=== PATIENT | female | born 1950 | race Caucasian/White ===

== ENCOUNTER 2018-12-10 13:13 | Inpatient (IN) | payer MEDICARE, BC ==
[~2018-12-10] VITALS: Ht 165.1 cm; Wt 103.1 kg
--- NOTE | 2018-12-10 13:45 | NUR ---
Admission Note with Justification for Admission to [facility] Patient admitted to [facility] for protective oversight for emergency stabilization of acute psychiatric crisis. Pt admitted from: Home vis [facility] Mode of arrival: EMS Accompanied By: EMS Precipitating behaviors that initiated intake and admission: Patient was reported to have called EMS on 12/04 and stating that she had a loaded gun and was afraid of what she might do. Patient was hallucinating and confused on admission at [place]. Description of failure of out patient attempts at stabilization in previous setting list behavior and medication trials: Several medication changes were made at [facility], prior to admission patient was in outpatient therapy. Behaviors and assessment findings upon admission: Patient was calm, withdrawn, depressed, neatly dressed, and cooperative. She was oriented to self, place, and time; when asked why she thought she was her, she stated 'To get help.' Patient denies SI at this time, and she states she's never had SI. She states she has had hallucinations in the past but denies having any recently. She states she has chronic back pain and normally takes naproxen for it, denies interventions at this time. Patient oriented to unit and moved to day room until meal time. Plan: Admit for protective oversight for adjustment and stabilization of medications, behaviors and mood. Intense treatment regimen including groups, medication adjustments, therapy, consistent regimen for ADL's, self care, and sleep hygiene. Daily monitoring by Inpatient staff, Psychiatry, and Medical Physician.
[2018-12-10] MEDS ORDERED: METHYL SALICYLATE/MENTHOL TOPICAL OINTMENT 57GM TUBE. TP PRN (14:00)
[2018-12-10] MEDS ORDERED: MAGNESIUM HYDROXIDE 2,400 MG/30 ML ORAL.SUSP. PO PRN (14:00)
[2018-12-10] MEDS ORDERED: MAG HYDROX/AL HYDROX/SIMETH 30 ML ORAL.SUSP PO PRN (14:00)
[2018-12-10 14:14] VITALS: BP 130/80
--- NOTE | 2018-12-10 15:35 | NUR ---
On 12/09/18, call placed to [facility] at [phone] to obtain benefits information. [facility] B services and claims can be submitted [place] [id number] or mailed to [address] [place] [address] [place] [facility]. Call reference number is [id number].
[2018-12-10] MEDS ORDERED: PENT100C PO (16:00)
[2018-12-10] MEDS ORDERED: PANT40TA5 PO (16:00)
[2018-12-10] MEDS ORDERED: CYAN-25 PO (16:00)
[2018-12-10] MEDS ORDERED: FLUO20CA8 PO (16:00)
[2018-12-10] MEDS ORDERED: MV-M1TAB8 PO (16:00)
[2018-12-10] MEDS ORDERED: SENN-37 PO (16:00)
[2018-12-10] MEDS ORDERED: LEVO50TA5 PO (16:00)
[2018-12-10] MEDS ORDERED: CARB1TAB2 PO (16:00)
[2018-12-10] MEDS ORDERED: CLOP75TA PO (16:00)
[2018-12-10] MEDS ORDERED: CHOL10003 PO (16:00)
[2018-12-10] MEDS ORDERED: ASPI1TAB54 PO (16:00)
[2018-12-10 16:24] VITALS: BP 142/85
[2018-12-10] MEDS: PENTOSAN POLYSULFATE SODIUM 100 MG CAPSULE. PO SCH (16:30)
[2018-12-10 17:07] LABS: BACTERIA,URINE MOD /HPF (0-FEW); BILIRUBIN,URINE NEG (NEG); CLARITY,URINE HAZY; COLOR,URINE YELLOW; GLUCOSE,URINE NEG (NEG); NITRITE,URINE NEG (NEG); RBC,URINE OCC /HPF (0-2); SQUAMOUS EPITHELIAL CELL,UR FEW /LPF; UROBILINOGEN,URINE 0.2 mg/dL (0.2 mg/dL)
--- NOTE | 2018-12-10 17:30 | NUR ---
PSYCHOSOCIAL ASSESSMENT ADMISSION DATE: 12/10/18 CONTACT INFORMATION: DPOA/Guardian Contact Name: Pt is a self sign Contact Address: [address]; [place] [address] Contact Phone #: ETHNIC ORIGIN: REASONS FOR ADMISSION: Combative Confusion/Disoriented Hallucinations Poor impulse control ADDITIONAL ADMISSION COMMENTS: According to the intake, pt is sleep deprived, intermittent hallucinations, SI called as she had a loaded gun and planned to shoot herself. Pt is combative towards hospital staff, agitated. REASON FOR ADMISSION IN PATIENT/FAMILY'S OWN WORDS: I think the medications I was given by my Urologist messed me up. It has Ketamine and I'm so foggy". PATIENT/FAMILY EXPECTATIONS FOR ADMISSION: Pt wants to get her medications evaluated and then go home. "I've been on them for 20 years and a change may be warranted. LIVING SITUATION: Patient lives with: Alone Contact Address: [address] [place] [address] [address]; [place] [address] Contact Phone #: FAMILY RELATIONS: Marital Status: # of Marriages: 2 # of Children: 2 [facility] Family Support: Concerned Additional Comments r/t Family: Pt reports that she was to Scott Verde and him 3 years later. Together the two had a son (Scott) who lived with CP until he passed at the age of 47. Pt then Juvenal العلي and was for 32 years. The two had a dtr, Alexandro who also lives in [place], [place] and is a great support for pt. Pt roughly 15 years ago due to complications from his diabetes. SIGNIFICANT PSYCHIATRIC/MEDICAL HISTORY: Psychiatric/Treatment History: Pt reports that she has been to [facility] in [place] and at one time, her dtr tried to have her move into [facility] after her CVA. "That was not a place for me". Pt has a prior dx of Parkinson's and MDD. Pt reports aside from her stroke, she also is a Breast Cancer survivor in remission and had a hysterectomy. Pertinent Family History: Pt sister had Breast and Ovarian Cancer, her brother, mother and father all had heart trouble. No mental health noted. HISTORICAL DATA: Childhood Environment: Stressful Childhood Environment Additional Comments: Pt reports that her father was not very supportive and her mother was pretty much a single parent. Pt father was a electric truck driver and home for 24 hours at a time. Pt is 1 of 5 children: Ignacia who lives in [place], Sinai lives in [place], [place]; Manpreet who also lives in [place], [place] and on brother who "years ago" (name not mentioned). Pt parents also almost 30 years ago at the young ages of 55 and 59. 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 "it helped them to find out if there was bad business or good business for the company. [employer] service: N My husbands were, but I was not Shinto background: Pt does not consider herself taoism but "if you have to put something down I guess you can say Samaritan". Sexual orientation: Heterosexual Educational Level: Pt graduated high school (12th grade) Past/Present Interests/Hobbies: Bowling ("although I wasn't very good at it"), Crocheting and Cooking (I cook a mean homemade mac and cheese). Financial support/resources: Group Home/Pension Social Security Monthly income: 2205 Person handling finances: Pt handles her own finances. Do you have a history of legal problems: N Cultural considerations: SOCIAL RELATIONSHIPS-CURRENT/PAST: Psychiatrist: Musa Kessler APRN PCP: Dr. Denise Wen Counselor/Therapist: [facility]: Support Group: Alterations Workroom Clerk/Corporate Fitness Program Coordinator: Other relationships: Neurologist: Dr. Almazan STRENGTHS & WEAKNESSES: Patient's strengths: Good family support Good verbal skills Ambulatory Approachable Other patient strengths: Patient's weaknesses: Impulsive Poor relationships Health problems Other Other patient weaknesses: Long hx of Depression PRELIMINARY PLAN OF TREATMENT: Preliminary plan: Dec. Anxiety/Panic Dec. Symp. Depression Promote Coping Skill Medication Stabilization Other preliminary treatment comments: DISCHARGE PLANNING: Discharge planning/disposition: Home Additional discharge needs identified: Pt wishes to return home to her apt. "There's no need for me to go anywhere besides home". ADDITIONAL INFORMATION: Other Pertinent Data: SW met with pt to complete PSA. In the beginnig of the assessment; Dr. Chiu attended and pt was able to tell both parties that she did not know if the gun was loaded. She reports not sleeping well lately just not feeling like herself. Pt reports before she knew it she had the gun and waving it in front of her face. Pt reports that she called 911 and also called her neighbor who came over to get the gun. She was then transferred to [facility]. Pt was alert and oriented x 4; however, couldn't guess more passed 93 when asked to do the serial 7's. "100-7, that's 93...94?! No that's not right. Oh I don't know". Pt reports that her , who has , initially had the gun in the house because he worked nights and wanted pt to have it for protection if possible. Pt was also able to report that she spends too much time alone. Pt does not have many friends and her 's family still helps out (caring for things around the house). Pt has home care through [facility] who cares for pt groceries, cleaning and can take her to appts on M,W,and F). Pt wants to be able to get off some of her meds and assess the doses of others. Pt is also concerned about her hands as she reports some "stiffness" and wants to see her neurologist MARIA DEL CARMEN. Pt mentioned some pain as she had a back surgery and reports part of her sleep issue has to do with the pain. Pt has been sleeping in her recliner, as laying flat is not comfortable and increases pain. Pt was very forthcoming with information and hopes to get things together. "I have so much on my mind and I obviously did not make a great decision". SW will continue to work with pt and work on getting pt more services in the home for support.
[2018-12-10] MEDS: CARBIDOPA/LEVODOPA 25/100MG TABLET PO SCH (20:51)
[2018-12-10] MEDS: SENNOSIDES/DOCUSATE 8.6/50MG TABLET. PO SCH (20:51)
--- NOTE | 2018-12-10 21:12 | PDOC ---
Exam Note: Oscar Note: Please also refer to the separate dictated note~for this date of service dictated separately. Discussed the patient with Nursing staff reviewed the chart.~Reviewed interim history and current functioning. Reviewed vital signs,~Labs/ Radiology~and current medications noted below. Continue current treatment with the changes noted in the dictated addendum note Assessment: Vital Signs/I&O: Vital Signs Date Time Temp Pulse Resp B/P (MAP) Pulse Ox O2 Delivery O2 Flow Rate FiO2 12/10/18 16:24 98.1 81 16 142/85 (104) 97 Room Air Labs: Laboratory Tests Test 12/10/18 14:25 12/10/18 16:48 Magnesium Level 1.6 mg/dL (1.8-2.4) L Urine Collection Type Unknown Urine Color Yellow Urine Clarity Hazy Urine pH 5.5 Urine Specific [place] 1.015 Urine Protein Neg (NEG-TRACE) Urine Glucose (UA) Neg mg/dL (NEG) Urine Ketones (Stick) Neg mg/dL (NEG) Urine Blood Neg (NEG) Urine Nitrite Neg (NEG) Urine Bilirubin Neg (NEG) Urine Urobilinogen Dipstick 0.2 mg/dL (0.2 mg/dL) Urine Leukocyte Esterase Trace (NEG) Urine RBC Occ /HPF (0-2) Urine WBC 1-4 /HPF (0-4) Urine Squamous Epithelial Cells Few /LPF Urine Bacteria Mod /HPF (0-FEW) Current Medications: Meds: Current Medications Medications (Trade) Dose Ordered Sig/Alyssia Route PRN Reason Start Time Stop Time Status Last Admin Dose Admin Carbidopa/Levodopa (Sinemet 25/100) 2 tab TID PO 12/10/18 21:00 12/10/18 20:51 Senna/Docusate Sodium (Senna Plus) 1 tab HS PO 12/10/18 21:00 12/10/18 20:51 I have reviewed the current psychotropics carefully including drug interactions. Risk benefit ratio favors no change other than as noted in my dictated progress note. Diagnosis: Problems: (1) Anxiety disorder (2) Major depressive disorder, recurrent episode (3) Impulse control disorder (4) Psychotic depression (5) Psychosis, atypical (6) Mild cognitive disorder SABRINA KAY MD Dec 10, 2018 21:12
--- NOTE | 2018-12-11 00:36 | NUR ---
Nursing note Pt alert and oriented, pleasant med compliant denies any circumstances re her admit. Says she has just had a lot going on but wont elaborate.
[2018-12-11 01:10] LABS: HEMOGLOBIN A1C 5.9 % (4.8-5.6)
[2018-12-11] MEDS: ACETAMINOPHEN 325 MG TABLET PO PRN (03:09)
[2018-12-11 03:11] LABS: THYROXINE 9.8 ug/dL (4.5-12.0)
[2018-12-11 06:29] VITALS: BP 139/82
[2018-12-11] MEDS: LEVOTHYROXINE 50 MCG TABLET PO SCH (06:47)
[2018-12-11] MEDS: PENTOSAN POLYSULFATE SODIUM 100 MG CAPSULE. PO SCH ×3 (07:30→16:30)
[2018-12-11] MEDS: PANTOPRAZOLE 40 MG TABLET. PO SCH (08:43)
[2018-12-11] MEDS: FLUoxetine HCL 20 MG CAPSULE PO SCH (08:43)
[2018-12-11] MEDS: CLOPIDOGREL BISULFATE 75 MG TABLET PO SCH (08:43)
[2018-12-11] MEDS: CARBIDOPA/LEVODOPA 25/100MG TABLET PO SCH ×3 (08:43→19:30)
[2018-12-11] MEDS: CYANOCOBALAMIN (VITAMIN B-12) 1,000 MCG TABLET. PO SCH (08:43)
[2018-12-11] MEDS: MULTIVITAMIN with MINERAL TABLET. PO SCH (08:43)
[2018-12-11] MEDS: CHOLECALCIFEROL (VITAMIN D3) 1,000 UNIT TABLET PO SCH (08:43)
[2018-12-11] MEDS: ASPIRIN 325 MG TABLET PO SCH (08:44)
--- NOTE | 2018-12-11 08:47 | HP ---
ADMIT DATE: 12/10/2018 PSYCHIATRIC ADMISSION HISTORY AND PSYCHIATRIC EVALUATION This late entry date of service 12/10/2018 covers elements not covered in my initial note 12/10/2018. IDENTIFYING DATA: The patient is a 68-year-old female referred to us from [facility] in [place] by Dr. Denise Wen after the patient was admitted there with worsening symptoms of depression, suicidal ideation with a loaded gun and plan to shoot herself at home where she lives by herself. She called the ambulance, was taken to the ER, was combative in the ER, agitated, having marked insomnia, intermittent hallucinations. Short-term memory deficits within the context of her right middle cerebral artery occlusion and CT head showing encephalomalacia around this area and generalized atrophy consistent with her age. This is all within the context of her Parkinson's for which she is on Sinemet in association with active hallucinations and worsening depression. She had failed outpatient psychiatric interventions with psychiatric nurse practitioner, Musa Kessler and a prior inpatient psychiatric stay at [facility]. She is deemed a potential danger to herself. Lives alone in her home and referred for inpatient psychiatric stabilization. CHIEF COMPLAINT: "I found myself with my hand gun in my hand waving it around in my head. I don't know if it was loaded or not. I felt more depressed and confused and called 911." HISTORY OF PRESENT ILLNESS: The patient has a history of worsening symptoms of depression with sleep and appetite changes, intermittent hallucinations. Short-term memory deficits and mood swings. No active homicidal ideation. She is fairly isolated, getting in-home services, but little contact socially beyond this. All of this has worsened her depression and presentation at admission. PAST PSYCHIATRIC HISTORY: As noted above and she was an inpatient at [facility] in [place] in the past. We will obtain those records. MEDICAL HISTORY: Positive for Parkinson's disease, right middle cerebral artery CVA, chronic interstitial cystitis, CA breast, DVT, chronic constipation, GERD, osteoarthritis, chronic back pain, hyperlipidemia, herpes, shortness of breath. CODE STATUS: DNR. ALLERGIES: MYRBETRIQ, CLINDAMYCIN, PREGABALIN, LIPITOR, ESTROGENS. ACCU-CHEKS: None. Ambulates ad nini with walker. CURRENT PSYCHOTROPICS: Prozac 20 mg a day. She is also on Sinemet 25/100 three times a day and in the past had been on amitriptyline, Ativan, meclizine, all of which were discontinued at [place]. FAMILY HISTORY: Noncontributory. SOCIAL HISTORY: No alcohol, drug abuse, physical, sexual or elder abuse history is noted. She is not known to be a perpetrator. REACTION TO HOSPITALIZATION: The patient accepting of it. ASSETS: Reasonably cognitively intact. She used to work in [employer]. She is . MENTAL STATUS EXAMINATION: The patient was seen individually evening of 12/10/2018. She was aware of the year 12/10/2018, knew the president was presromelia Graf. She was able to do one step on serial sevens and no more. Attention span short. Mood is depressed, anxious affect, mood congruent. She is a little apprehensive, but not clearly paranoid. No active suicidal or homicidal ideation. Attention span is short. Language function intact. Intellect average. Insight fair. Judgment intact to standard questioning at the time of my assessment. LABORATORY DATA: Reviewed. IMPRESSION: Major depressive disorder, recurrent with psychotic features, mild cognitive impairment, psychotic disorder, unspecified, rule out bipolar disorder, mixed with psychotic features. Rest diagnoses as above. PLAN: Admit to geropsychiatry unit at [facility]. I will see the patient daily individually from a psychiatric standpoint. Medical followup per Dr. Garcia. Continue the patient on her current medications. Obtain past psychiatric records from [facility], observe baseline, then make further changes as clinically indicated. Estimated length of stay 10-12 days. DISPOSITION: Plans possibly back home with intense outpatient treatment arranged prior to discharge, perhaps through [facility]. MAN Kaylah KAY MD DR: TONY/lor JOB#: [id number] / [id number]
--- NOTE | 2018-12-11 10:51 | NUR ---
Spoke with patient and pharmacy this morning. Pharmacy is not able to obtain Elmiron, patient asked daughter to bring in her home supply. Daughter told patient that she would bring it during visitation on Friday12/12/18. SW and pharmacy informed.
[2018-12-11 13:23] LABS: THYROID STIM HORMONE (TSH) 3.485 uIU/mL (0.358-3.740)
[2018-12-11 15:54] VITALS: BP 126/79
[2018-12-11] MEDS: SENNOSIDES/DOCUSATE 8.6/50MG TABLET. PO SCH (19:30)
--- NOTE | 2018-12-11 20:10 | CONS ---
DATE OF CONSULTATION: REASON FOR CONSULTATION: Medical management. HISTORY OF PRESENT ILLNESS: The patient is a 68-year-old female patient, who was referred to [facility] from [facility] in [place] where she was admitted with worsening symptoms of depression, suicidal ideation with a loaded gun and plan to shoot herself at home where she lives by herself. She apparently called the ambulance and was taken to the ER, was combative, agitated, having marked insomnia, intermittent hallucination as well as short term deficit within the context of right middle cerebral artery territory infarct and a CT scan showing encephalomalacia around that area, generalized atrophy consistent with her age. This is all within the context of her Parkinson's disease for which she is on Sinemet in association with active hallucination and worsening depression. She was admitted to this facility for inpatient psychiatric stabilization. PAST PSYCHIATRIC HISTORY: Significant worsening symptoms of depression and short-term memory deficit and mood swings. She has no homicidal ideation. PAST MEDICAL HISTORY: Significant for Parkinson's disease, right middle cerebral artery territory infarct, left-sided hemiparesis. She has breast cancer, DVT, chronic constipation, gastroesophageal reflux disease, osteoarthritis and osteoporosis, chronic back pain, hyperlipidemia, herpes zoster and shortness of breath. PAST SURGICAL HISTORY: Significant for total abdominal hysterectomy and bilateral salpingo-oophorectomy, tonsillectomy and back surgery. ALLERGIES: SHE IS ALLERGIC TO MYRBETRIQ, CLINDAMYCIN, PREGABALIN, LIPITOR AND ESTROGEN. MEDICATIONS: She is currently on following medications: She is on Plavix 75 mg once a day, aspirin/calcium carbonate 1 tablet once a day, fluoxetine 20 mg once a day, carbidopa/levodopa for Sinemet 25/100 two tablets 3 times a day, Senna-S one tablet at bedtime, Protonix 40 mg once a day, levothyroxine sodium 50 mcg once a day, cyanocobalamin 1000 mcg tablet 1 tablet once a day, ergocalciferol (vitamin D3) one tablet 1000 international unit once a day, multivitamin with mineral one tablet once a day and pentosan polysulfate sodium for Elmiron 100 mg 3 times a day for chronic cystitis. FAMILY HISTORY: Noncontributory. SOCIAL HISTORY: She is , lives alone. She has 1 son who was and has one daughter and one grandson. She does not smoke, drink alcohol or use any recreational drugs. PHYSICAL EXAMINATION: GENERAL: On examining her, she looked well and was clearly in no apparent respiratory distress, slightly pale, but no jaundice, cyanosis or thyromegaly. No jugular venous distention. No limb edema. VITAL SIGNS: Her heart rate was 81, blood pressure was 139/82, temperature was 97.9, respiratory rate was 16, and oxygen saturation was 99% on room air. HEAD, EYES, EARS, NOSE AND THROAT: Showed normocephalic, atraumatic. NECK: Supple. HEART: Showed normal first and second heart sounds. No gallop or murmur. CHEST: Clear to auscultation. No crepitation or rhonchi. ABDOMEN: Distended, soft, nontender. NEUROLOGIC: She is awake, alert, responding appropriately. All cranial nerves intact. EXTREMITIES: She moves extremities without difficulty. She ambulates with a walker. LABORATORY DATA: Showed her hemoglobin A1c was 5.9%. Magnesium was low at 1.6. Her total T4 and total T3 are normal at 9.8 and 108 respectively. Urinalysis was essentially unremarkable. She apparently has had lab work done at [facility] which showed that her white cell count was 4850. Her hemoglobin was 12.4, hematocrit 39, MCV 100, and platelet count 154,000. Her chemistry showed a serum sodium 143, potassium 4.1, chloride 108, BUN 18, creatinine 1.5. Glucose 106, bicarbonate 25. Ionized calcium 1.16. Her estimated GFR was 36 mL per minute. TSH was 3.060. Urinalysis was essentially unremarkable. ALLERGIES: SHE IS ALLERGIC TO ESTROGEN, ATORVASTATIN, CLINDAMYCIN, MYRBETRIQ, AND PREGABALIN. IMPRESSION: In summary, this is a 68-year-old female patient who was admitted to [facility] in [place] with worsening symptoms of depression, suicidal ideation with a loaded gun and plan to shoot herself at home where she lives by herself. She was very agitated and markedly insomnia, intermittent hallucination with short-term memory deficit in the context of her right middle cerebral artery territory infarct and CT scan showing encephalomalacia around this area and generalized atrophy consistent with her age. She was admitted to this facility for inpatient psychiatric stabilization. Medically, she has multiple medical problems including history of deep vein thrombosis of her right lower extremity. She has right middle cerebral artery territory infarct with left-sided hemiparesis, chronic interstitial cystitis without hematuria, chronic constipation. She has diaphragmatic hernia. She has also vertigo, gastroesophageal reflux disease, herpes viral infection and nicotine dependence, Parkinson's disease, hypercholesterolemia. She has also primary malignant neoplasm of her right breast. Her lab work is within normal range. Medically she seems all in all stable. Obviously, I will follow all the lab works that are still pending at the time of this dictation and make any necessary recommendation. Thank you, Dr. Chiu, for allowing me to participate in the care of this patient. LIANNA NOWAK MD DR: DEYSI/lor JOB#: [id number] / [id number]
--- NOTE | 2018-12-11 21:38 | PDOC ---
Exam Note: Oscar Note: Please also refer to the separate dictated note~for this date of service dictated separately.~Patient seen individually. Discussed the patient with Nursing staff reviewed the chart.~Reviewed interim history and current functioning. Reviewed vital signs,~Labs/ Radiology~and current medications noted below. Continue current treatment with the changes noted in the dictated addendum note Assessment: Vital Signs/I&O: Vital Signs Date Time Temp Pulse Resp B/P (MAP) Pulse Ox O2 Delivery O2 Flow Rate FiO2 12/11/18 15:54 97.9 83 18 126/79 (95) 99 12/11/18 06:29 Room Air I & O 12/10/18 12/10/18 12/11/18 15:00 23:00 07:00 Intake Total 120 ml 0 ml Balance 120 ml 0 ml Current Medications: Meds: Current Medications Medications (Trade) Dose Ordered Sig/Alyssia Route PRN Reason Start Time Stop Time Status Last Admin Dose Admin Vitamin D (Vitamin D3) 1,000 unit DAILY PO 12/11/18 09:00 12/11/18 08:43 Clopidogrel Bisulfate (Plavix) 75 mg DAILY PO 12/11/18 09:00 12/11/18 08:43 Cyanocobalamin (Vitamin B-12) 1,000 mcg DAILY PO 12/11/18 09:00 12/11/18 08:43 Fluoxetine HCl (PROzac) 20 mg DAILY PO 12/11/18 09:00 12/11/18 08:43 Levothyroxine Sodium (Synthroid) 50 mcg DAILY06 PO 12/11/18 06:00 12/11/18 06:47 Pantoprazole Sodium (Protonix) 40 mg DAILY PO 12/11/18 09:00 12/11/18 08:43 Aspirin (Camryn Aspirin) 325 mg DAILYWBKFT PO 12/11/18 08:00 12/11/18 08:44 Multivitamins/ Calcium (Thera-M Plus) 1 tab DAILY PO 12/11/18 09:00 12/11/18 08:43 I have reviewed the current psychotropics carefully including drug interactions. Risk benefit ratio favors no change other than as noted in my dictated progress note. Diagnosis: Problems: (1) Anxiety disorder (2) Major depressive disorder, recurrent episode (3) Impulse control disorder (4) Psychotic depression (5) Psychosis, atypical (6) Mild cognitive disorder ELIZA,MAN M MD Dec 11, 2018 21:38
--- NOTE | 2018-12-12 02:10 | NUR ---
Last evening pt was quiet and active on unit. When conversing with nurse she was pleasant and cooperative. She denies SI or hallucinations ans said she is feeling much better than when admitted. Meds taken whole without difficulty. No behaviors this shift.
[2018-12-12] MEDS: LEVOTHYROXINE 50 MCG TABLET PO SCH (06:00)
[2018-12-12 06:22] VITALS: BP 135/74
[2018-12-12] MEDS: ACETAMINOPHEN 325 MG TABLET PO PRN ×3 (06:51→20:18)
--- NOTE | 2018-12-12 06:53 | NUR ---
PRN tylenol given for back pain.
[2018-12-12] MEDS: ASPIRIN 325 MG TABLET PO SCH (09:45)
[2018-12-12] MEDS: CLOPIDOGREL BISULFATE 75 MG TABLET PO SCH (09:45)
[2018-12-12] MEDS: FLUoxetine HCL 20 MG CAPSULE PO SCH (09:46)
[2018-12-12] MEDS: CARBIDOPA/LEVODOPA 25/100MG TABLET PO SCH ×3 (09:46→19:34)
[2018-12-12] MEDS: CYANOCOBALAMIN (VITAMIN B-12) 1,000 MCG TABLET. PO SCH (09:46)
[2018-12-12] MEDS: MULTIVITAMIN with MINERAL TABLET. PO SCH (09:46)
[2018-12-12] MEDS: PANTOPRAZOLE 40 MG TABLET. PO SCH (09:46)
[2018-12-12] MEDS: CHOLECALCIFEROL (VITAMIN D3) 1,000 UNIT TABLET PO SCH (09:46)
[2018-12-12] MEDS: PENTOSAN POLYSULFATE SODIUM 100 MG CAPSULE. PO SCH ×3 (10:45→17:02)
--- NOTE | 2018-12-12 11:55 | NUR ---
Pt is calm, cooperative, compliant and oriented. No agitation, no aggression, no hallucinations, no delusions. She is compliant with her medication and assessment.
--- NOTE | 2018-12-12 12:00 | NUR ---
Pt has verbally contracted for safety while admitted here.
[2018-12-12 16:43] VITALS: BP 104/69
[2018-12-12] MEDS: SENNOSIDES/DOCUSATE 8.6/50MG TABLET. PO SCH (19:34)
--- NOTE | 2018-12-12 20:57 | NUR ---
Nursing note: Assumed care of pt in the day room. She was calm and watching a movie but stated she wasn't interested. She was compliant and pleasant. She denies SI and pain at this time but asked for Tylenol after she went to her room. States back pain is 8/10 and is chronic. Pt is A&OX4
--- NOTE | 2018-12-12 23:25 | PDOC ---
Exam Note: Oscar Note: Please also refer to the separate dictated note~for this date of service dictated separately.~Patient seen individually. Discussed the patient with Nursing staff reviewed the chart.~Reviewed interim history and current functioning. Reviewed vital signs,~Labs/ Radiology~and current medications noted below. Continue current treatment with the changes noted in the dictated addendum note Assessment: Vital Signs/I&O: Vital Signs Date Time Temp Pulse Resp B/P (MAP) Pulse Ox O2 Delivery O2 Flow Rate FiO2 12/12/18 16:43 98.2 87 20 104/69 (81) 98 12/12/18 06:22 Room Air I & O 12/11/18 12/11/18 12/12/18 14:59 22:59 06:59 Intake Total 720 ml 240 ml 240 ml Balance 720 ml 240 ml 240 ml Current Medications: I have reviewed the current psychotropics carefully including drug interactions. Risk benefit ratio favors no change other than as noted in my dictated progress note. Diagnosis: Problems: (1) Anxiety disorder (2) Major depressive disorder, recurrent episode (3) Impulse control disorder (4) Psychotic depression (5) Psychosis, atypical (6) Mild cognitive disorder SABRINA KAY MD Dec 12, 2018 23:25
[2018-12-13] MEDS: ACETAMINOPHEN 325 MG TABLET PO PRN ×3 (05:43→20:16)
[2018-12-13] MEDS: LEVOTHYROXINE 50 MCG TABLET PO SCH (05:43)
[2018-12-13 05:47] VITALS: BP 121/79
[2018-12-13] MEDS: PENTOSAN POLYSULFATE SODIUM 100 MG CAPSULE. PO SCH ×3 (09:15→15:46)
[2018-12-13] MEDS: CARBIDOPA/LEVODOPA 25/100MG TABLET PO SCH ×3 (09:16→20:16)
[2018-12-13] MEDS: FLUoxetine HCL 20 MG CAPSULE PO SCH (09:16)
[2018-12-13] MEDS: PANTOPRAZOLE 40 MG TABLET. PO SCH (09:16)
[2018-12-13] MEDS: ASPIRIN 325 MG TABLET PO SCH (09:16)
[2018-12-13] MEDS: CHOLECALCIFEROL (VITAMIN D3) 1,000 UNIT TABLET PO SCH (09:16)
[2018-12-13] MEDS: CYANOCOBALAMIN (VITAMIN B-12) 1,000 MCG TABLET. PO SCH (09:16)
[2018-12-13] MEDS: CLOPIDOGREL BISULFATE 75 MG TABLET PO SCH (09:16)
[2018-12-13] MEDS: MULTIVITAMIN with MINERAL TABLET. PO SCH (09:16)
--- NOTE | 2018-12-13 10:28 | NUR ---
Pt is calm, cooperative, compliant and oriented. No agitation, no aggression, no hallucinations, no delusions. Pt verbally contracted for safety while she is here. She is compliant with her medication and assessment.
[2018-12-13 16:20] VITALS: BP 120/70
[2018-12-13] MEDS: SENNOSIDES/DOCUSATE 8.6/50MG TABLET. PO SCH (20:16)
--- NOTE | 2018-12-13 21:53 | PDOC ---
Exam Note: Oscar Note: Please also refer to the separate dictated note~for this date of service dictated separately.~Patient seen individually. Discussed the patient with Nursing staff reviewed the chart.~Reviewed interim history and current functioning. Reviewed vital signs,~Labs/ Radiology~and current medications noted below. Continue current treatment with the changes noted in the dictated addendum note Assessment: Vital Signs/I&O: Vital Signs Date Time Temp Pulse Resp B/P (MAP) Pulse Ox O2 Delivery O2 Flow Rate FiO2 12/13/18 16:20 97.8 98 18 120/70 (87) 99 12/12/18 06:22 Room Air I & O 12/12/18 12/12/18 12/13/18 15:00 23:00 07:00 Intake Total 480 ml 240 ml Balance 480 ml 240 ml Current Medications: I have reviewed the current psychotropics carefully including drug interactions. Risk benefit ratio favors no change other than as noted in my dictated progress note. Diagnosis: Problems: (1) Anxiety disorder (2) Major depressive disorder, recurrent episode (3) Impulse control disorder (4) Psychotic depression (5) Psychosis, atypical (6) Mild cognitive disorder SABRINA KAY MD Dec 13, 2018 21:53
[2018-12-13] MEDS: traZODone 50 MG TABLET. PO SCH (23:00)
[2018-12-14 05:36] VITALS: BP 126/74
[2018-12-14] MEDS: LEVOTHYROXINE 50 MCG TABLET PO SCH (05:45)
[2018-12-14] MEDS: ACETAMINOPHEN 325 MG TABLET PO PRN ×3 (05:53→20:16)
--- NOTE | 2018-12-14 07:24 | PN ---
DATE: 12/11/2018 PSYCHIATRIC PROGRESS NOTE This late entry 12/11/2018 covers elements not covered in my initial note. SUBJECTIVE: I met with the patient evening of 12/11/2018. Per SHASHA Cormier, the patient slept 5-1/2 hours previous night. She has been withdrawn, somewhat depressed, comes out to the day room. We will get past psychiatric records from [facility]. REVIEW OF SYSTEMS: No CV, , pulmonary, eye system symptoms on review. MENTAL STATUS EXAM: Oriented to herself and situation. Speech has some latency, coherent. Abstraction fair, computation impaired, language function intact. Mood and affect remains depressed, anxious. LABORATORY DATA: Reviewed. IMPRESSION: Major depressive disorder, recurrent with psychotic features, mild cognitive impairment. Rest unchanged. PLAN: Change Prozac 20 mg a day to Cymbalta 30 mg a day. We will make further adjustments as clinically indicated. SABRINA KAY MD DR: TONY/lor JOB#: [id number] / [id number]
[2018-12-14] MEDS: CLOPIDOGREL BISULFATE 75 MG TABLET PO SCH (08:42)
[2018-12-14] MEDS: PENTOSAN POLYSULFATE SODIUM 100 MG CAPSULE. PO SCH ×3 (08:42→15:59)
[2018-12-14] MEDS: ASPIRIN 325 MG TABLET PO SCH (08:42)
[2018-12-14] MEDS: MULTIVITAMIN with MINERAL TABLET. PO SCH (08:43)
[2018-12-14] MEDS: CYANOCOBALAMIN (VITAMIN B-12) 1,000 MCG TABLET. PO SCH (08:43)
[2018-12-14] MEDS: PANTOPRAZOLE 40 MG TABLET. PO SCH (08:43)
[2018-12-14] MEDS: CHOLECALCIFEROL (VITAMIN D3) 1,000 UNIT TABLET PO SCH (08:43)
[2018-12-14] MEDS: CARBIDOPA/LEVODOPA 25/100MG TABLET PO SCH ×3 (08:43→20:14)
[2018-12-14] MEDS: FLUoxetine HCL 20 MG CAPSULE PO SCH (08:43)
--- NOTE | 2018-12-14 10:02 | NUR ---
Pt verbally contracted for safety while she is here. She is compliant with her medication and assessment. Pt is calm, cooperative, compliant and oriented. No agitation, no aggression, no hallucinations, no delusions.
--- NOTE | 2018-12-14 13:35 | NUR ---
ACTIVITY THERAPY ASSESSMENT Completed based on observation and interview. Pt. was sitting in the hallway and didn't show much interest in talking with SCREEN STRETCHER but did answer assessment questions. She explained she came from home, living alone with her dog, Salome. When asked about leisure interests/hobbies and what she does for fun, she explained "nothing." She watched TV, used to smiley, bake/cook, read newspaper. SCREEN STRETCHER discussed option about getting a journal while she was here and use of a electronic tablet with apps/games. She was surprised she could have access to a journal because she said she wanted to write a letter to a friend but wasn't able to get anything to write to him. SCREEN STRETCHER explained the structure a little more. Pt. soon added she just doesn't seem to trust people. Pt. appeared to smile more when talking about her small dog. She shared there are good neighbors who have dogs, too. Pt. talked about how after her stroke, she really couldn't smiley any longer. When asked what brought Pt. here, she paused, looks at SCREEN STRETCHER and questions her, asking "you know, don't you?" She went on to say she was a "stupid" old lady who did something stupid. Went on to say she never did anything like it before and when asked if she think's she will do it again, she said "probably not." Initial goal aimed to increase leisure engagement: Pt. will participate in at least one Activity Therapy group per day.
[2018-12-14 16:06] VITALS: BP 128/76
[2018-12-14] MEDS: traZODone 50 MG TABLET. PO SCH (20:14)
[2018-12-14] MEDS: SENNOSIDES/DOCUSATE 8.6/50MG TABLET. PO SCH (20:14)
[2018-12-14] MEDS: PATCH REMOVAL. MC SCH (21:00)
--- NOTE | 2018-12-14 21:16 | PDOC ---
Exam Note: Oscar Note: Please also refer to the separate dictated note~for this date of service dictated separately.~Patient seen individually. Discussed the patient with Nursing staff reviewed the chart.~Reviewed interim history and current functioning. Reviewed vital signs,~Labs/ Radiology~and current medications noted below. Continue current treatment with the changes noted in the dictated addendum note Assessment: Vital Signs/I&O: Vital Signs Date Time Temp Pulse Resp B/P (MAP) Pulse Ox O2 Delivery O2 Flow Rate FiO2 12/14/18 16:06 98.0 84 18 128/76 (93) 95 12/12/18 06:22 Room Air I & O 12/13/18 12/13/18 12/14/18 15:00 23:00 07:00 Intake Total 240 ml 240 ml 0 ml Balance 240 ml 240 ml 0 ml Current Medications: Meds: Current Medications Medications (Trade) Dose Ordered Sig/Alyssia Route PRN Reason Start Time Stop Time Status Last Admin Dose Admin Trazodone HCl (Desyrel) 50 mg QHS PO 12/13/18 23:00 12/14/18 20:14 I have reviewed the current psychotropics carefully including drug interactions. Risk benefit ratio favors no change other than as noted in my dictated progress note. Diagnosis: Problems: (1) Anxiety disorder (2) Major depressive disorder, recurrent episode (3) Impulse control disorder (4) Psychotic depression (5) Psychosis, atypical (6) Mild cognitive disorder SABRINA KAY MD Dec 14, 2018 21:16
--- NOTE | 2018-12-14 22:04 | PN ---
DATE: 12/13/2018 PSYCHIATRIC PROGRESS NOTE This late entry 12/13/2018 covers elements not covered in my initial note. SUBJECTIVE: I met with the patient in the evening. The patient slept 6-3/4 hours previous night. No suicidal ideation noted. She is somewhat withdrawn. REVIEW OF SYSTEMS: No CV, , pulmonary, eye, ENT system symptoms on review. MENTAL STATUS EXAM: Oriented to herself and situation. Speech has some latency, often responses monosyllabic. Abstraction fair, computation impaired, language function intact. Mood and affect still depressed, withdrawn, but improved. No suicidal ideation. LABORATORY DATA: Reviewed. IMPRESSION: Major depressive disorder with psychotic features; mild cognitive impairment. PLAN: Continue Cymbalta. Adjust gradually to 90 mg a day. Start trazodone 50 mg at bedtime scheduled, june repeat x 1 for insomnia. MAN Kaylah KAY MD DR: TONY/lor JOB#: [id number] / [id number]
--- NOTE | 2018-12-14 22:48 | NUR ---
Nursing Note Pt has a flat affect, is calm and cooperative with meds, main complaint is hip/back pain to the left side. Tylenol given PO, for pain. Sitting in day room quietly watching TV.
[2018-12-15] MEDS: LEVOTHYROXINE 50 MCG TABLET PO SCH (02:12)
[2018-12-15] MEDS: ACETAMINOPHEN 325 MG TABLET PO PRN ×3 (02:12→20:44)
[2018-12-15 02:18] VITALS: BP 137/83
--- NOTE | 2018-12-15 02:32 | NUR ---
Nursing Note Pt awake complaining of back pain, tylenol repeated, offered raegan toney but she declined, pt attempting to go back to sleep currently.
--- NOTE | 2018-12-15 05:01 | PN ---
DATE: 12/12/2018 PSYCHIATRIC PROGRESS NOTE This late entry 12/12/2018 covers the elements not covered in my initial note. SUBJECTIVE: I met with the patient in the evening. The patient slept 6 hours previous night. She has been compliant, appropriate, cooperative with the meds, does complain of low back pain, received Tylenol. A1c is 5.9. No suicidal ideation. REVIEW OF SYSTEMS: Positive for some tiredness. No CV, , pulmonary, eye, ENT system symptoms on review. MENTAL STATUS EXAM: Reasonably oriented. Speech is coherent, low in volume. Abstraction fair, computation impaired, language function intact, attention span short. Mood is somewhat depressed. Affect is mood congruent. LABORATORY DATA: Reviewed. IMPRESSION: Major depressive disorder with psychotic features; mild cognitive impairment. Rest unchanged. PLAN: Maintain Cymbalta at current dosage. We will gradually increase beyond the current 30 mg a day up to a maximum of 90 mg a day. Adjust further as clinically indicated. MAN Kaylah KAY MD DR: TONY/lor JOB#: [id number] / [id number]
[2018-12-15] MEDS: CARBIDOPA/LEVODOPA 25/100MG TABLET PO SCH ×3 (08:33→20:44)
[2018-12-15] MEDS: PENTOSAN POLYSULFATE SODIUM 100 MG CAPSULE. PO SCH ×3 (08:33→16:34)
[2018-12-15] MEDS: ASPIRIN 325 MG TABLET PO SCH (08:33)
[2018-12-15] MEDS: CLOPIDOGREL BISULFATE 75 MG TABLET PO SCH (08:33)
[2018-12-15] MEDS: CYANOCOBALAMIN (VITAMIN B-12) 1,000 MCG TABLET. PO SCH (08:33)
[2018-12-15] MEDS: MULTIVITAMIN with MINERAL TABLET. PO SCH (08:33)
[2018-12-15] MEDS: FLUoxetine HCL 20 MG CAPSULE PO SCH (08:33)
[2018-12-15] MEDS: CHOLECALCIFEROL (VITAMIN D3) 1,000 UNIT TABLET PO SCH (08:34)
[2018-12-15] MEDS: PANTOPRAZOLE 40 MG TABLET. PO SCH (08:34)
[2018-12-15] MEDS: LIDOCAINE (700MG/PATCH) PATCH. TD SCH (08:35)
--- NOTE | 2018-12-15 16:51 | NUR ---
Patient has been calm, cooperative, and compliant today. She has been out to the day room, social with peers, and participating in groups. Will continue to monitor and report to oncoming shift
[2018-12-15 17:16] VITALS: BP 129/81
[2018-12-15] MEDS: PATCH REMOVAL. MC SCH (20:44)
[2018-12-15] MEDS: traZODone 50 MG TABLET. PO SCH (20:44)
[2018-12-15] MEDS: SENNOSIDES/DOCUSATE 8.6/50MG TABLET. PO SCH (20:44)
--- NOTE | 2018-12-15 21:10 | PDOC ---
Exam Note: Oscar Note: Please also refer to the separate dictated note~for this date of service dictated separately.~Patient seen individually. Discussed the patient with Nursing staff reviewed the chart.~Reviewed interim history and current functioning. Reviewed vital signs,~Labs/ Radiology~and current medications noted below. Continue current treatment with the changes noted in the dictated addendum note Assessment: Vital Signs/I&O: Vital Signs Date Time Temp Pulse Resp B/P (MAP) Pulse Ox O2 Delivery O2 Flow Rate FiO2 12/15/18 17:16 97.7 88 16 129/81 (97) 98 12/12/18 06:22 Room Air I & O 12/14/18 12/14/18 12/15/18 15:00 23:00 07:00 Intake Total 600 ml 480 ml Balance 600 ml 480 ml Current Medications: Meds: Current Medications Medications (Trade) Dose Ordered Sig/Alyssia Route PRN Reason Start Time Stop Time Status Last Admin Dose Admin Lidocaine (Lidoderm) 1 patch DAILY TD 12/15/18 09:00 12/15/18 08:35 I have reviewed the current psychotropics carefully including drug interactions. Risk benefit ratio favors no change other than as noted in my dictated progress note. Diagnosis: Problems: (1) Anxiety disorder (2) Major depressive disorder, recurrent episode (3) Impulse control disorder (4) Psychotic depression (5) Psychosis, atypical (6) Mild cognitive disorder SABRINA KAY MD Dec 15, 2018 21:10
--- NOTE | 2018-12-15 22:23 | NUR ---
Nursing Note Tylenol given with HS meds for back pain, pleasant calm and cooperative this PM. States she had a good day.
--- NOTE | 2018-12-15 22:55 | PN ---
DATE: 12/14/2018 PSYCHIATRIC PROGRESS NOTE This late entry 12/14/2018 covers elements not covered in my initial note. SUBJECTIVE: I met with the patient evening of 12/14/2018. Per SHASHA Khalil, the patient slept 6-1/2 hours previous night. She did well at night and during the day, remains depressed, withdrawn. Denies active suicidal ideation or psychotic symptoms. REVIEW OF SYSTEMS: No CV, , pulmonary, eye, ENT system symptoms on review, does complain of some tremors consequent to Parkinson's. We will consult Dr. Easley to monitor her anti-Parkinson's medications. MENTAL STATUS EXAM: Reasonably oriented. Speech has some latency, coherent. Abstraction fair, computation impaired, language function intact, attention span short. Mood and affect remain somewhat withdrawn, anxious, paranoid. LABORATORY DATA: Reviewed. IMPRESSION: Unchanged from initial note. PLAN: No change from initial note. Continue Cymbalta along with trazodone later for insomnia. MAN Kaylah KAY MD DR: TONY/lor JOB#: [id number] / [id number]
[2018-12-16 04:46] VITALS: BP 123/76
[2018-12-16] MEDS: LEVOTHYROXINE 50 MCG TABLET PO SCH (07:41)
[2018-12-16] MEDS: LIDOCAINE (700MG/PATCH) PATCH. TD SCH (07:45)
[2018-12-16] MEDS: CLOPIDOGREL BISULFATE 75 MG TABLET PO SCH (07:45)
[2018-12-16] MEDS: MULTIVITAMIN with MINERAL TABLET. PO SCH (07:46)
[2018-12-16] MEDS: CARBIDOPA/LEVODOPA 25/100MG TABLET PO SCH ×3 (07:46→20:34)
[2018-12-16] MEDS: CHOLECALCIFEROL (VITAMIN D3) 1,000 UNIT TABLET PO SCH (07:46)
[2018-12-16] MEDS: ASPIRIN 325 MG TABLET PO SCH (07:46)
[2018-12-16] MEDS: PANTOPRAZOLE 40 MG TABLET. PO SCH (07:46)
[2018-12-16] MEDS: CYANOCOBALAMIN (VITAMIN B-12) 1,000 MCG TABLET. PO SCH (07:46)
[2018-12-16 07:47] LABS: BASO % 1 % (0-3); EOS # 0.1 x10^3/uL (0.0-0.7); EOS % 3 % (0-3); HEMATOCRIT 38.6 % (36.0-47.0); HEMOGLOBIN 12.7 g/dL (12.0-15.5); LYMPH # 1.2 x10^3/uL (1.0-4.8); LYMPH % 31 % (24-48); MEAN CORPUSCULAR HEMOGLOBIN 32 pg (25-35); MEAN CORPUSCULAR HGB CONC 33 g/dL (31-37); MEAN CORPUSCULAR VOLUME 98 fL (79-100); MONO # 0.6 x10^3/uL (0.0-1.1); MONO % 15 % (0-9); NEUT # 1.9 x10^3uL (1.8-7.7); NEUT % 50 % (31-73); PLATELET COUNT 150 x10^3/uL (140-400); RED BLOOD COUNT 3.94 x10^6/uL (3.50-5.40); RED CELL DISTRIBUTION WIDTH 15.6 % (11.5-14.5); WHITE BLOOD COUNT 3.8 x10^3/uL (4.0-11.0)
[2018-12-16] MEDS: ACETAMINOPHEN 325 MG TABLET PO PRN ×2 (07:47→20:34)
[2018-12-16] MEDS: PENTOSAN POLYSULFATE SODIUM 100 MG CAPSULE. PO SCH ×3 (07:49→16:30)
[2018-12-16] MEDS: DULoxetine HCL 30 MG CAPSULE.DR PO SCH (07:49)
[2018-12-16 07:52] LABS: ALBUMIN 3.4 g/dL (3.4-5.0); GFR 54.8; POTASSIUM 4.3 mmol/L (3.5-5.1); TOTAL BILIRUBIN 0.4 mg/dL (0.2-1.0); TOTAL PROTEIN 6.9 g/dL (6.4-8.2)
--- NOTE | 2018-12-16 11:25 | NUR ---
Patient has been compliant with medications and cooperative with assessments. Patient complained of back and hip pain. Patient PRN Tylenol given at breakfast.
[2018-12-16 15:58] VITALS: BP 116/76
[2018-12-16] MEDS: traZODone 50 MG TABLET. PO SCH (20:33)
[2018-12-16] MEDS: SENNOSIDES/DOCUSATE 8.6/50MG TABLET. PO SCH (20:34)
[2018-12-16] MEDS: PATCH REMOVAL. MC SCH (20:38)
--- NOTE | 2018-12-16 21:43 | PDOC ---
Exam Note: Oscar Note: Please also refer to the separate dictated note~for this date of service dictated separately.~Patient seen individually. Discussed the patient with Nursing staff reviewed the chart.~Reviewed interim history and current functioning. Reviewed vital signs,~Labs/ Radiology~and current medications noted below. Continue current treatment with the changes noted in the dictated addendum note Assessment: Vital Signs/I&O: Vital Signs Date Time Temp Pulse Resp B/P (MAP) Pulse Ox O2 Delivery O2 Flow Rate FiO2 12/16/18 15:58 98.3 95 18 116/76 (89) 100 12/12/18 06:22 Room Air I & O 12/15/18 12/15/18 12/16/18 15:00 23:00 07:00 Intake Total 680 ml 240 ml 120 ml Balance 680 ml 240 ml 120 ml Labs: Laboratory Tests Test 12/16/18 07:13 White Blood Count 3.8 x10^3/uL (4.0-11.0) L Red Blood Count 3.94 x10^6/uL (3.50-5.40) Hemoglobin 12.7 g/dL (12.0-15.5) Hematocrit 38.6 % (36.0-47.0) Mean Corpuscular Volume 98 fL (79-100) Mean Corpuscular Hemoglobin 32 pg (25-35) Mean Corpuscular Hemoglobin Concent 33 g/dL (31-37) Red Cell Distribution Width 15.6 % (11.5-14.5) H Platelet Count 150 x10^3/uL (140-400) Neutrophils (%) (Auto) 50 % (31-73) Lymphocytes (%) (Auto) 31 % (24-48) Monocytes (%) (Auto) 15 % (0-9) H Eosinophils (%) (Auto) 3 % (0-3) Basophils (%) (Auto) 1 % (0-3) Neutrophils # (Auto) 1.9 x10^3uL (1.8-7.7) Lymphocytes # (Auto) 1.2 x10^3/uL (1.0-4.8) Monocytes # (Auto) 0.6 x10^3/uL (0.0-1.1) Eosinophils # (Auto) 0.1 x10^3/uL (0.0-0.7) Basophils # (Auto) 0.0 x10^3/uL (0.0-0.2) Sodium Level 143 mmol/L (136-145) Potassium Level 4.3 mmol/L (3.5-5.1) Chloride Level 108 mmol/L (98-107) H Carbon Dioxide Level 25 mmol/L (21-32) Anion Gap 10 (6-14) Blood Urea Nitrogen 13 mg/dL (7-20) Creatinine 1.0 mg/dL (0.6-1.0) Estimated GFR (Cockcroft-Gault) 54.8 BUN/Creatinine Ratio 13 (6-20) Glucose Level 103 mg/dL (70-99) H Calcium Level 9.0 mg/dL (8.5-10.1) Total Bilirubin 0.4 mg/dL (0.2-1.0) Aspartate Amino Transferase (AST) 21 U/L (15-37) Alanine Aminotransferase (ALT) 9 U/L (14-59) L Alkaline Phosphatase 51 U/L (46-116) Total Protein 6.9 g/dL (6.4-8.2) Albumin 3.4 g/dL (3.4-5.0) Albumin/Globulin Ratio 1.0 (1.0-1.7) Current Medications: Meds: Current Medications Medications (Trade) Dose Ordered Sig/Alyssia Route PRN Reason Start Time Stop Time Status Last Admin Dose Admin Duloxetine HCl (Cymbalta) 30 mg DAILY PO 12/16/18 09:00 12/17/18 23:50 12/16/18 07:49 I have reviewed the current psychotropics carefully including drug interactions. Risk benefit ratio favors no change other than as noted in my dictated progress note. Diagnosis: Problems: (1) Anxiety disorder (2) Major depressive disorder, recurrent episode (3) Impulse control disorder (4) Psychotic depression (5) Psychosis, atypical (6) Mild cognitive disorder SABRINA KAY MD Dec 16, 2018 21:43
--- NOTE | 2018-12-16 22:52 | NUR ---
Nursing Note Tylenol given with HS meds for back pain, pleasant calm and cooperative this PM.
[2018-12-17] MEDS: LEVOTHYROXINE 50 MCG TABLET PO SCH (04:49)
[2018-12-17 05:19] VITALS: BP 115/77
[2018-12-17] MEDS: CLOPIDOGREL BISULFATE 75 MG TABLET PO SCH (08:36)
[2018-12-17] MEDS: MULTIVITAMIN with MINERAL TABLET. PO SCH (08:36)
[2018-12-17] MEDS: ASPIRIN 325 MG TABLET PO SCH (08:36)
[2018-12-17] MEDS: DULoxetine HCL 30 MG CAPSULE.DR PO SCH (08:36)
[2018-12-17] MEDS: CARBIDOPA/LEVODOPA 25/100MG TABLET PO SCH ×3 (08:36→19:52)
[2018-12-17] MEDS: PANTOPRAZOLE 40 MG TABLET. PO SCH (08:37)
[2018-12-17] MEDS: CHOLECALCIFEROL (VITAMIN D3) 1,000 UNIT TABLET PO SCH (08:37)
[2018-12-17] MEDS: CYANOCOBALAMIN (VITAMIN B-12) 1,000 MCG TABLET. PO SCH (08:37)
[2018-12-17] MEDS: LIDOCAINE (700MG/PATCH) PATCH. TD SCH (08:39)
[2018-12-17] MEDS: PENTOSAN POLYSULFATE SODIUM 100 MG CAPSULE. PO SCH ×3 (08:40→17:03)
[2018-12-17] MEDS: ACETAMINOPHEN 325 MG TABLET PO PRN ×2 (08:42→19:52)
--- NOTE | 2018-12-17 08:58 | NUR ---
WEEKLY ACTIVITY THERAPY NOTE Date of Admission: 12/10/2018 Date of AT Assessment: 12/14/2018 Goal aimed: to increase leisure engagement Initial goal:Pt. will participate in at least one Activity Therapy group per day. Weekly progress towards goal: achieved when two groups were offered, 5 groups this week Group participation level: varied Weekly highlights: offering thoughts and ideas during group without prompting Behaviors observed: quiet, pleasant, minimal eye contact, will engage in groups, often around day room Plan: no change to goal Beneficial adaptations: reminders about group.
--- NOTE | 2018-12-17 10:36 | NUR ---
WEEKLY NOTE: Pt is eating roughly 75% of meals and sleeping on average 7 hours of sleep. Pt is not coming to groups as she is not fond of the music meditation. Pt is encouraged to attend the second half of SW groups. Pt is open to assisted living as she is mostly home alone and not interactive. Pt has flat affect and is very soft spoken. Pt may qualify for [facility] services to see if that will help pt continue to live at home. Pt Prozac is changed to Cymbalta and will have Trazodone for sleep. Pt did see Dr. Easley for neurology consult.
--- NOTE | 2018-12-17 14:04 | PN ---
DATE: 12/15/2018 PSYCHIATRIC PROGRESS NOTE This late entry 12/15/2018 covers elements not covered in my initial note. SUBJECTIVE: Per SHASHA Cormier, patient slept 4-3/4 hours previous night. She remains withdrawn, depressed, to minimize ____. Complains of some tremors from Parkinson's. Dr. Easley, Neurology has seen her. REVIEW OF SYSTEMS: No CV, , pulmonary, eye system symptoms on review. MENTAL STATUS EXAM: Reasonably oriented. Speech has some latency, coherent, low in volume, often responses monosyllabic. Abstraction fair, computation impaired, language function intact. Mood and affect withdrawn, depressed. LABORATORY DATA: Reviewed. IMPRESSION: Unchanged from initial note. PLAN: SHASHA Cormier indicated that inadvertently patient was never started on Cymbalta in place of Prozac on Friday. We will go ahead and initiate this transition from Prozac to Cymbalta 30 mg a day for 2 days, then 60 mg a day thereafter. Rest unchanged for now. SABRINA KAY MD DR: TONY/lor JOB#: [id number] / [id number]
[2018-12-17 15:42] VITALS: BP 119/82
--- NOTE | 2018-12-17 17:42 | NUR ---
Patient has been calm, cooperative, and compliant today. She has been out to the day room all shift, social with peers, and participating in groups. Patient requesting tylenol with her bedtime medications for back pain. Will continue to monitor and report to oncoming shift.
[2018-12-17] MEDS: traZODone 50 MG TABLET. PO SCH (19:52)
[2018-12-17] MEDS: SENNOSIDES/DOCUSATE 8.6/50MG TABLET. PO SCH (19:52)
[2018-12-17] MEDS: PATCH REMOVAL. MC SCH (19:53)
--- NOTE | 2018-12-17 21:40 | PDOC ---
Exam Note: Oscar Note: Please also refer to the separate dictated note~for this date of service dictated separately.~Patient seen individually. Discussed the patient with Nursing staff reviewed the chart.~Reviewed interim history and current functioning. Reviewed vital signs,~Labs/ Radiology~and current medications noted below. Continue current treatment with the changes noted in the dictated addendum note Assessment: Vital Signs/I&O: Vital Signs Date Time Temp Pulse Resp B/P (MAP) Pulse Ox O2 Delivery O2 Flow Rate FiO2 12/17/18 15:42 97.8 94 16 119/82 (94) 99 12/12/18 06:22 Room Air I & O 12/16/18 12/16/18 12/17/18 15:00 23:00 07:00 Intake Total 840 ml 240 ml 240 ml Balance 840 ml 240 ml 240 ml Current Medications: I have reviewed the current psychotropics carefully including drug interactions. Risk benefit ratio favors no change other than as noted in my dictated progress note. Diagnosis: Problems: (1) Anxiety disorder (2) Major depressive disorder, recurrent episode (3) Impulse control disorder (4) Psychotic depression (5) Psychosis, atypical (6) Mild cognitive disorder SABRINA KAY MD Dec 17, 2018 21:40
--- NOTE | 2018-12-18 00:34 | NUR ---
Patient was in the day room at time of medication administration and assessments. Patient was calm, compliant and cooperative. Not very verbal or expressive. No other notable behaviors at this time.
[2018-12-18 05:39] VITALS: BP 130/81
[2018-12-18] MEDS: LEVOTHYROXINE 50 MCG TABLET PO SCH (05:44)
[2018-12-18] MEDS: ASPIRIN 325 MG TABLET PO SCH (07:55)
[2018-12-18] MEDS: CLOPIDOGREL BISULFATE 75 MG TABLET PO SCH (07:56)
[2018-12-18] MEDS: CHOLECALCIFEROL (VITAMIN D3) 1,000 UNIT TABLET PO SCH (07:56)
[2018-12-18] MEDS: DULoxetine HCL 60 MG CAPSULE.DR PO SCH (07:56)
[2018-12-18] MEDS: MULTIVITAMIN with MINERAL TABLET. PO SCH (07:56)
[2018-12-18] MEDS: CYANOCOBALAMIN (VITAMIN B-12) 1,000 MCG TABLET. PO SCH (07:56)
[2018-12-18] MEDS: PANTOPRAZOLE 40 MG TABLET. PO SCH (07:56)
[2018-12-18] MEDS: PENTOSAN POLYSULFATE SODIUM 100 MG CAPSULE. PO SCH ×3 (07:56→16:25)
[2018-12-18] MEDS: CARBIDOPA/LEVODOPA 25/100MG TABLET PO SCH ×3 (07:56→20:39)
[2018-12-18] MEDS: LIDOCAINE (700MG/PATCH) PATCH. TD SCH (07:57)
[2018-12-18] MEDS: ACETAMINOPHEN 325 MG TABLET PO PRN ×2 (07:58→14:01)
[2018-12-18 16:08] VITALS: BP 123/80
--- NOTE | 2018-12-18 18:47 | NUR ---
Patient has been calm, cooperative, and compliant today. She has been out to the day room all shift, generally withdrawn to herself. SHe has had increased LBP, prn meds provided per eMAR. Patient requesting tylenol with her bedtime medications for back pain. Will continue to monitor and report to oncoming shift.
[2018-12-18] MEDS: traZODone 50 MG TABLET. PO SCH (20:39)
[2018-12-18] MEDS: SENNOSIDES/DOCUSATE 8.6/50MG TABLET. PO SCH (20:39)
[2018-12-18] MEDS: PATCH REMOVAL. MC SCH (20:39)
--- NOTE | 2018-12-18 21:34 | PDOC ---
Exam Note: Oscar Note: Please also refer to the separate dictated note~for this date of service dictated separately.~Patient seen individually. Discussed the patient with Nursing staff reviewed the chart.~Reviewed interim history and current functioning. Reviewed vital signs,~Labs/ Radiology~and current medications noted below. Continue current treatment with the changes noted in the dictated addendum note Assessment: Vital Signs/I&O: Vital Signs Date Time Temp Pulse Resp B/P (MAP) Pulse Ox O2 Delivery O2 Flow Rate FiO2 12/18/18 16:08 97.5 83 18 123/80 (94) 97 I & O 12/17/18 12/17/18 12/18/18 15:00 23:00 07:00 Intake Total 480 ml 360 ml 240 ml Balance 480 ml 360 ml 240 ml Current Medications: Meds: Current Medications Medications (Trade) Dose Ordered Sig/Alyssia Route PRN Reason Start Time Stop Time Status Last Admin Dose Admin Duloxetine HCl (Cymbalta) 60 mg DAILY PO 12/18/18 09:00 12/18/18 07:56 I have reviewed the current psychotropics carefully including drug interactions. Risk benefit ratio favors no change other than as noted in my dictated progress note. Diagnosis: Problems: (1) Anxiety disorder (2) Major depressive disorder, recurrent episode (3) Impulse control disorder (4) Psychotic depression (5) Psychosis, atypical (6) Mild cognitive disorder SABRINA KAY MD Dec 18, 2018 21:33
--- NOTE | 2018-12-19 00:43 | PN ---
DATE: 12/16/2018 PSYCHIATRIC PROGRESS NOTE This late entry 12/16/2018 covers the elements not covered in my initial note. SUBJECTIVE: I met with the patient in the evening. Per Kalani PULLIAM, the patient slept 7-1/2 hours previous night. She has complained of some vague pain, received Tylenol, somewhat withdrawn, still depressed. REVIEW OF SYSTEMS: No CV, , pulmonary, eye system symptoms on review. MENTAL STATUS EXAM: The patient is reasonably oriented. Speech is coherent, has some latency. Abstraction fair, computation impaired, language function intact, attention span short. Mood and affect withdrawn. LABORATORY DATA: Reviewed. IMPRESSION: Major depressive disorder with psychotic features; mild cognitive impairment; anxiety disorder, unspecified. PLAN: Continue psychotropics from initial note. Cymbalta has been increased to 60 mg a day. Continue trazodone. May consider augmentation with Wellbutrin or Abilify depending on her progress. SABRINA KAY MD DR: TONY/lor JOB#: [id number] / [id number]
--- NOTE | 2018-12-19 01:44 | NUR ---
Last evening pt was quiet and cooperative meds taken whole without difficulty. Denies SI, no behaviors.
--- NOTE | 2018-12-19 01:55 | PN ---
DATE: 12/17/2018 This late entry 12/17/2018 covers elements not covered in my initial note. SUBJECTIVE: I met with the patient evening of 12/17/2018. The patient slept 6 hours previous night. She was also staffed at a treatment team meeting morning of 12/17/2018, and she attended this herself and I met with her individually in the evening. Reviewed her history, progress. She is still depressed, withdrawn, has not been attending very many groups and said she was not aware of them and staff members went over this in detail with her at the treatment team meeting. REVIEW OF SYSTEMS: Ambulation impaired with walker. No CV, , pulmonary, eye system symptoms on review. MENTAL STATUS EXAM: Oriented reasonably. Speech moderate latency. Abstraction fair, computation impaired, language function intact. Mood is depressed, withdrawn. No active suicidal ideation. Affect is mood congruent. We discussed the gun she had at home that she was waving around her head loaded and she said the police have custody of the gun. We discussed possible assisted living placement or going back home with services from the [facility]. LABORATORY DATA: Reviewed. IMPRESSION: Major depressive disorder with psychotic features in partial remission, mild cognitive impairment, Parkinson's disease, anxiety disorder, unspecified. PLAN: Continue to gradually increase the Cymbalta to 60 mg a day. Use trazodone p.r.n. and scheduled and Sinemet being adjusted per Dr. Easley for Parkinson. SABRINA KAY MD DR: TONY/lor JOB#: [id number] / [id number]
[2018-12-19] MEDS: LEVOTHYROXINE 50 MCG TABLET PO SCH (05:31)
[2018-12-19 05:47] VITALS: BP 130/83
[2018-12-19] MEDS: LIDOCAINE (700MG/PATCH) PATCH. TD SCH (08:06)
[2018-12-19] MEDS: ASPIRIN 325 MG TABLET PO SCH (08:06)
[2018-12-19] MEDS: CHOLECALCIFEROL (VITAMIN D3) 1,000 UNIT TABLET PO SCH (08:06)
[2018-12-19] MEDS: CLOPIDOGREL BISULFATE 75 MG TABLET PO SCH (08:06)
[2018-12-19] MEDS: PANTOPRAZOLE 40 MG TABLET. PO SCH (08:06)
[2018-12-19] MEDS: DULoxetine HCL 60 MG CAPSULE.DR PO SCH (08:07)
[2018-12-19] MEDS: CYANOCOBALAMIN (VITAMIN B-12) 1,000 MCG TABLET. PO SCH (08:07)
[2018-12-19] MEDS: MULTIVITAMIN with MINERAL TABLET. PO SCH (08:07)
[2018-12-19] MEDS: PENTOSAN POLYSULFATE SODIUM 100 MG CAPSULE. PO SCH ×3 (08:07→16:22)
[2018-12-19] MEDS: CARBIDOPA/LEVODOPA 25/100MG TABLET PO SCH ×3 (08:07→20:21)
--- NOTE | 2018-12-19 14:23 | NUR ---
Patient has been calm, cooperative, and compliant today. She has been out to the day room most of the shift, generally withdrawn to herself. Will continue to monitor and report to oncoming shift.
[2018-12-19 15:45] VITALS: BP 118/82
[2018-12-19] MEDS: SENNOSIDES/DOCUSATE 8.6/50MG TABLET. PO SCH (20:21)
[2018-12-19] MEDS: PATCH REMOVAL. MC SCH (20:21)
[2018-12-19] MEDS: traZODone 50 MG TABLET. PO SCH (20:21)
[2018-12-19] MEDS: ACETAMINOPHEN 325 MG TABLET PO PRN (20:21)
--- NOTE | 2018-12-19 23:21 | PDOC ---
Exam Note: Oscar Note: Please also refer to the separate dictated note~for this date of service dictated separately.~Patient seen individually. Discussed the patient with Nursing staff reviewed the chart.~Reviewed interim history and current functioning. Reviewed vital signs,~Labs/ Radiology~and current medications noted below. Continue current treatment with the changes noted in the dictated addendum note Assessment: Vital Signs/I&O: Vital Signs Date Time Temp Pulse Resp B/P (MAP) Pulse Ox O2 Delivery O2 Flow Rate FiO2 12/19/18 15:45 97.7 80 18 118/82 (94) 99 I & O 12/18/18 12/18/18 12/19/18 15:00 23:00 07:00 Intake Total 600 ml 600 ml Balance 600 ml 600 ml Current Medications: I have reviewed the current psychotropics carefully including drug interactions. Risk benefit ratio favors no change other than as noted in my dictated progress note. Diagnosis: Problems: (1) Anxiety disorder (2) Major depressive disorder, recurrent episode (3) Impulse control disorder (4) Psychotic depression (5) Psychosis, atypical (6) Mild cognitive disorder SABRINA KAY MD Dec 19, 2018 23:21
--- NOTE | 2018-12-20 01:37 | NUR ---
Nsg Note: Patient in day room at time of medication administration and assessments. Patient calm, cooperative, and compliant with all cares. Patient went to bed shortly after taking medications. No other notable behaviors at this time.
[2018-12-20] MEDS: LEVOTHYROXINE 50 MCG TABLET PO SCH (05:48)
[2018-12-20 06:02] VITALS: BP 128/88
[2018-12-20] MEDS: PENTOSAN POLYSULFATE SODIUM 100 MG CAPSULE. PO SCH ×3 (08:14→17:04)
[2018-12-20] MEDS: CARBIDOPA/LEVODOPA 25/100MG TABLET PO SCH ×3 (08:15→20:19)
[2018-12-20] MEDS: PANTOPRAZOLE 40 MG TABLET. PO SCH (08:15)
[2018-12-20] MEDS: DULoxetine HCL 60 MG CAPSULE.DR PO SCH (08:15)
[2018-12-20] MEDS: MULTIVITAMIN with MINERAL TABLET. PO SCH (08:15)
[2018-12-20] MEDS: ASPIRIN 325 MG TABLET PO SCH (08:15)
[2018-12-20] MEDS: CLOPIDOGREL BISULFATE 75 MG TABLET PO SCH (08:15)
[2018-12-20] MEDS: CHOLECALCIFEROL (VITAMIN D3) 1,000 UNIT TABLET PO SCH (08:16)
[2018-12-20] MEDS: CYANOCOBALAMIN (VITAMIN B-12) 1,000 MCG TABLET. PO SCH (08:16)
[2018-12-20] MEDS: LIDOCAINE (700MG/PATCH) PATCH. TD SCH (09:05)
--- NOTE | 2018-12-20 10:53 | NUR ---
Pt verbally contracted for safety while she is here. Pt is calm, cooperative, compliant and oriented. No agitation, no aggression, no hallucinations, no delusions. She is compliant with her medication and assessment.
[2018-12-20 15:47] VITALS: BP 105/69
[2018-12-20] MEDS: SENNOSIDES/DOCUSATE 8.6/50MG TABLET. PO SCH (20:20)
[2018-12-20] MEDS: traZODone 50 MG TABLET. PO SCH (20:20)
[2018-12-20] MEDS: PATCH REMOVAL. MC SCH (20:34)
--- NOTE | 2018-12-20 20:38 | PDOC ---
Exam Note: Oscar Note: Please also refer to the separate dictated note~for this date of service dictated separately.~Patient seen individually. Discussed the patient with Nursing staff reviewed the chart.~Reviewed interim history and current functioning. Reviewed vital signs,~Labs/ Radiology~and current medications noted below. Continue current treatment with the changes noted in the dictated addendum note Assessment: Vital Signs/I&O: Vital Signs Date Time Temp Pulse Resp B/P (MAP) Pulse Ox O2 Delivery O2 Flow Rate FiO2 12/20/18 15:47 97.5 86 16 105/69 (81) 98 12/20/18 06:02 Room Air I & O 12/19/18 12/19/18 12/20/18 15:00 23:00 07:00 Intake Total 960 ml 240 ml 240 ml Balance 960 ml 240 ml 240 ml Current Medications: I have reviewed the current psychotropics carefully including drug interactions. Risk benefit ratio favors no change other than as noted in my dictated progress note. Diagnosis: Problems: (1) Anxiety disorder (2) Major depressive disorder, recurrent episode (3) Impulse control disorder (4) Psychotic depression (5) Psychosis, atypical (6) Mild cognitive disorder SABRINA KAY MD Dec 20, 2018 20:38
--- NOTE | 2018-12-20 23:26 | NUR ---
Pt located in the dayroom this evening. Pt calm and withdrawn to herself. Compliant with whole medications. Denies SI.
[2018-12-21 05:21] VITALS: BP 137/77
[2018-12-21] MEDS: LEVOTHYROXINE 50 MCG TABLET PO SCH (05:52)
[2018-12-21 07:24] LABS: BASO % 1 % (0-3); EOS # 0.1 x10^3/uL (0.0-0.7); EOS % 2 % (0-3); HEMATOCRIT 39.2 % (36.0-47.0); HEMOGLOBIN 12.6 g/dL (12.0-15.5); LYMPH # 1.4 x10^3/uL (1.0-4.8); LYMPH % 34 % (24-48); MEAN CORPUSCULAR HEMOGLOBIN 32 pg (25-35); MEAN CORPUSCULAR HGB CONC 32 g/dL (31-37); MEAN CORPUSCULAR VOLUME 98 fL (79-100); MONO # 0.5 x10^3/uL (0.0-1.1); MONO % 12 % (0-9); NEUT # 2.1 x10^3uL (1.8-7.7); NEUT % 52 % (31-73); PLATELET COUNT 187 x10^3/uL (140-400); RED BLOOD COUNT 3.98 x10^6/uL (3.50-5.40); RED CELL DISTRIBUTION WIDTH 15.3 % (11.5-14.5); WHITE BLOOD COUNT 4.1 x10^3/uL (4.0-11.0)
[2018-12-21] MEDS: PENTOSAN POLYSULFATE SODIUM 100 MG CAPSULE. PO SCH ×3 (07:30→16:28)
[2018-12-21 07:39] LABS: ALBUMIN 3.5 g/dL (3.4-5.0); ALBUMIN/GLOBULIN RATIO 0.9 (1.0-1.7); CALCIUM 8.7 mg/dL (8.5-10.1); CREATININE 1.1 mg/dL (0.6-1.0); GFR 49.1; POTASSIUM 4.4 mmol/L (3.5-5.1); TOTAL BILIRUBIN 0.3 mg/dL (0.2-1.0); TOTAL PROTEIN 7.4 g/dL (6.4-8.2)
[2018-12-21] MEDS: DULoxetine HCL 60 MG CAPSULE.DR PO SCH (08:24)
[2018-12-21] MEDS: CYANOCOBALAMIN (VITAMIN B-12) 1,000 MCG TABLET. PO SCH (08:24)
[2018-12-21] MEDS: CLOPIDOGREL BISULFATE 75 MG TABLET PO SCH (08:24)
[2018-12-21] MEDS: MULTIVITAMIN with MINERAL TABLET. PO SCH (08:24)
[2018-12-21] MEDS: PANTOPRAZOLE 40 MG TABLET. PO SCH (08:24)
[2018-12-21] MEDS: CHOLECALCIFEROL (VITAMIN D3) 1,000 UNIT TABLET PO SCH (08:24)
[2018-12-21] MEDS: ACETAMINOPHEN 325 MG TABLET PO PRN ×2 (08:24→20:04)
[2018-12-21] MEDS: ASPIRIN 325 MG TABLET PO SCH (08:24)
[2018-12-21] MEDS: CARBIDOPA/LEVODOPA 25/100MG TABLET PO SCH ×3 (08:24→20:02)
[2018-12-21] MEDS: LIDOCAINE (700MG/PATCH) PATCH. TD SCH (08:25)
--- NOTE | 2018-12-21 13:50 | NUR ---
HANS met with pt to discuss discharge planning and pt wishes to go home versus placement. Pt reports that she would prefer to discharge home. She knows that pt dtr does not wish for her to return home; but understands that it is pt decision. Pt does want to discharge home and is fine with extra services to help support her at home. SW informed pt that it would be ideal for her to get out of the house a couple times a week. SW recommended that pt continue to allow her neighbor to keep her gun and if she felt she needed something to make her feel safe, she can invest into pepper spray or some other means of protection. Pt reports that she believes she has an appointment schedule with both the neurologist and her Nurse Practitioner for meds. SW suggested pt getting home on but pt did request sooner. HANS agreed to Friday so that all appointments can be made and services reinstated. Pt agreed and reports that her dtr should be able to pick her up after work, as she is off around 1600. HANS will contact pt dtr to confirm this.
[2018-12-21 16:25] VITALS: BP 119/77
[2018-12-21] MEDS: traZODone 50 MG TABLET. PO SCH (20:02)
[2018-12-21] MEDS: SENNOSIDES/DOCUSATE 8.6/50MG TABLET. PO SCH (20:02)
[2018-12-21] MEDS: PATCH REMOVAL. MC SCH (20:34)
--- NOTE | 2018-12-21 20:37 | PDOC ---
Exam Note: Oscar Note: Please also refer to the separate dictated note~for this date of service dictated separately.~Patient seen individually. Discussed the patient with Nursing staff reviewed the chart.~Reviewed interim history and current functioning. Reviewed vital signs,~Labs/ Radiology~and current medications noted below. Continue current treatment with the changes noted in the dictated addendum note Assessment: Vital Signs/I&O: Vital Signs Date Time Temp Pulse Resp B/P (MAP) Pulse Ox O2 Delivery O2 Flow Rate FiO2 12/21/18 16:25 98.3 91 16 119/77 (91) 98 12/20/18 06:02 Room Air I & O 12/20/18 12/20/18 12/21/18 15:00 23:00 07:00 Intake Total 600 ml 600 ml Balance 600 ml 600 ml Labs: Laboratory Tests Test 12/21/18 07:04 White Blood Count 4.1 x10^3/uL (4.0-11.0) Red Blood Count 3.98 x10^6/uL (3.50-5.40) Hemoglobin 12.6 g/dL (12.0-15.5) Hematocrit 39.2 % (36.0-47.0) Mean Corpuscular Volume 98 fL (79-100) Mean Corpuscular Hemoglobin 32 pg (25-35) Mean Corpuscular Hemoglobin Concent 32 g/dL (31-37) Red Cell Distribution Width 15.3 % (11.5-14.5) H Platelet Count 187 x10^3/uL (140-400) Neutrophils (%) (Auto) 52 % (31-73) Lymphocytes (%) (Auto) 34 % (24-48) Monocytes (%) (Auto) 12 % (0-9) H Eosinophils (%) (Auto) 2 % (0-3) Basophils (%) (Auto) 1 % (0-3) Neutrophils # (Auto) 2.1 x10^3uL (1.8-7.7) Lymphocytes # (Auto) 1.4 x10^3/uL (1.0-4.8) Monocytes # (Auto) 0.5 x10^3/uL (0.0-1.1) Eosinophils # (Auto) 0.1 x10^3/uL (0.0-0.7) Basophils # (Auto) 0.0 x10^3/uL (0.0-0.2) Sodium Level 143 mmol/L (136-145) Potassium Level 4.4 mmol/L (3.5-5.1) Chloride Level 106 mmol/L (98-107) Carbon Dioxide Level 24 mmol/L (21-32) Anion Gap 13 (6-14) Blood Urea Nitrogen 21 mg/dL (7-20) H Creatinine 1.1 mg/dL (0.6-1.0) H Estimated GFR (Cockcroft-Gault) 49.1 BUN/Creatinine Ratio 19 (6-20) Glucose Level 110 mg/dL (70-99) H Calcium Level 8.7 mg/dL (8.5-10.1) Total Bilirubin 0.3 mg/dL (0.2-1.0) Aspartate Amino Transferase (AST) 19 U/L (15-37) Alanine Aminotransferase (ALT) 22 U/L (14-59) Alkaline Phosphatase 60 U/L (46-116) Total Protein 7.4 g/dL (6.4-8.2) Albumin 3.5 g/dL (3.4-5.0) Albumin/Globulin Ratio 0.9 (1.0-1.7) L Current Medications: I have reviewed the current psychotropics carefully including drug interactions. Risk benefit ratio favors no change other than as noted in my dictated progress note. Diagnosis: Problems: (1) Anxiety disorder (2) Major depressive disorder, recurrent episode (3) Impulse control disorder (4) Psychotic depression (5) Psychosis, atypical (6) Mild cognitive disorder SABRINA KAY MD Dec 21, 2018 20:37
--- NOTE | 2018-12-21 22:44 | PN ---
DATE: 12/18/2018 PSYCHIATRIC PROGRESS NOTE This late entry 12/18/2018 covers the elements not covered in my initial note. SUBJECTIVE: I met with the patient in the evening of 12/18/2018. Per SHASHA Cormier, the patient slept 6-3/4 hours previous night. She has been withdrawn, sits in the day room. No suicidal ideation. REVIEW OF SYSTEMS: Positive for some tiredness, ambulation with walker. No CV, , pulmonary, eye system symptoms on review. MENTAL STATUS EXAM: Reasonably oriented. Speech is coherent, has some latency. Abstraction fair, computation impaired, language function intact, attention span short. Mood and affect withdrawn. LABORATORY DATA: Reviewed. IMPRESSION: Unchanged from initial note. PLAN: No change from initial note and Cymbalta will be increased to 60 mg a day. MAN Kaylah KAY MD DR: TONY/lor JOB#: [id number] / [id number]
--- NOTE | 2018-12-21 23:36 | PN ---
DATE: 12/20/2018 PSYCHIATRIC PROGRESS NOTE This late entry 12/20/2018 covers the elements not covered in my initial note. SUBJECTIVE: I met with the patient in the evening of 12/20/2018. Overall, the patient remains somewhat withdrawn, but states her mood is better. REVIEW OF SYSTEMS: No CV, , pulmonary, eye system symptoms on review. Gait unsteady with walker. MENTAL STATUS EXAM: The patient is reasonably oriented. Speech is coherent, abstraction fair, computation impaired, language function intact, attention span short. Mood and affect is improved, very verbal, interactive in the evening with me. LABORATORY DATA: Reviewed. IMPRESSION: Unchanged from initial note. PLAN: No change from initial note. SABRINA KAY MD DR: TONY/lor JOB#: [id number] / [id number]
--- NOTE | 2018-12-22 00:20 | NUR ---
Nursing note Pt is distant and withdrawn tonight. Answers questions, but is slow and deliberate in her responses.
[2018-12-22 05:41] VITALS: BP 137/88
[2018-12-22] MEDS: LEVOTHYROXINE 50 MCG TABLET PO SCH (06:04)
[2018-12-22] MEDS: ASPIRIN 325 MG TABLET PO SCH (08:22)
[2018-12-22] MEDS: PENTOSAN POLYSULFATE SODIUM 100 MG CAPSULE. PO SCH ×3 (08:22→16:23)
[2018-12-22] MEDS: DULoxetine HCL 60 MG CAPSULE.DR PO SCH (08:23)
[2018-12-22] MEDS: CHOLECALCIFEROL (VITAMIN D3) 1,000 UNIT TABLET PO SCH (08:23)
[2018-12-22] MEDS: CARBIDOPA/LEVODOPA 25/100MG TABLET PO SCH ×3 (08:23→20:31)
[2018-12-22] MEDS: MULTIVITAMIN with MINERAL TABLET. PO SCH (08:23)
[2018-12-22] MEDS: CLOPIDOGREL BISULFATE 75 MG TABLET PO SCH (08:23)
[2018-12-22] MEDS: CYANOCOBALAMIN (VITAMIN B-12) 1,000 MCG TABLET. PO SCH (08:23)
[2018-12-22] MEDS: PANTOPRAZOLE 40 MG TABLET. PO SCH (08:23)
[2018-12-22] MEDS: LIDOCAINE (700MG/PATCH) PATCH. TD SCH (08:24)
[2018-12-22] MEDS: ACETAMINOPHEN 325 MG TABLET PO PRN (08:25)
--- NOTE | 2018-12-22 11:36 | PN ---
DATE: 12/19/2018 PSYCHIATRIC PROGRESS NOTE This late entry, 12/19, covers elements not covered in my initial note. SUBJECTIVE: I met with the patient in the evening. The patient slept 7 hours previous night. Still depressed. Compliant with her medications. REVIEW OF SYSTEMS: Ambulation impaired with walker. No CV, , pulmonary, eye system symptoms on review. MENTAL STATUS EXAM: Reasonably oriented. Speech has some latency, coherent. Abstraction fair, computation impaired, language function intact. She states mood is better. LABORATORY DATA: Reviewed. IMPRESSION: Unchanged from initial note. PLAN: No change from initial note. MAN Kaylah KAY MD DR: TONY/lor JOB#: [id number] / [id number]
[2018-12-22 16:20] VITALS: BP 123/73
[2018-12-22] MEDS: PATCH REMOVAL. MC SCH (20:30)
[2018-12-22] MEDS: traZODone 50 MG TABLET. PO SCH (20:31)
[2018-12-22] MEDS: SENNOSIDES/DOCUSATE 8.6/50MG TABLET. PO SCH (20:31)
--- NOTE | 2018-12-22 20:41 | PDOC ---
Exam Note: Oscar Note: Please also refer to the separate dictated note~for this date of service dictated separately.~Patient seen individually. Discussed the patient with Nursing staff reviewed the chart.~Reviewed interim history and current functioning. Reviewed vital signs,~Labs/ Radiology~and current medications noted below. Continue current treatment with the changes noted in the dictated addendum note Assessment: Vital Signs/I&O: Vital Signs Date Time Temp Pulse Resp B/P (MAP) Pulse Ox O2 Delivery O2 Flow Rate FiO2 12/22/18 16:20 98.4 83 16 123/73 (90) 96 12/20/18 06:02 Room Air I & O 12/21/18 12/21/18 12/22/18 15:00 23:00 07:00 Intake Total 720 ml 480 ml Balance 720 ml 480 ml Current Medications: I have reviewed the current psychotropics carefully including drug interactions. Risk benefit ratio favors no change other than as noted in my dictated progress note. Diagnosis: Problems: (1) Anxiety disorder (2) Major depressive disorder, recurrent episode (3) Impulse control disorder (4) Psychotic depression (5) Psychosis, atypical (6) Mild cognitive disorder SABRINA KAY MD Dec 22, 2018 20:41
[2018-12-23] MEDS ORDERED: ACET325T9 PO (01:06)
[2018-12-23] MEDS ORDERED: DULO60CA6 PO (01:08)
[2018-12-23] MEDS ORDERED: LIDO700A21 TP (01:12)
[2018-12-23] MEDS ORDERED: MAG30ORA2 PO (01:13)
[2018-12-23] MEDS ORDERED: MAGN2400 PO (01:15)
[2018-12-23] MEDS ORDERED: METH99.22 TP (01:16)
[2018-12-23] MEDS ORDERED: TRAZ-120 PO (01:17)
[2018-12-23 05:28] VITALS: BP 121/81
[2018-12-23] MEDS: LEVOTHYROXINE 50 MCG TABLET PO SCH (05:34)
[2018-12-23] MEDS: PENTOSAN POLYSULFATE SODIUM 100 MG CAPSULE. PO SCH ×3 (08:01→16:30)
[2018-12-23] MEDS: ACETAMINOPHEN 325 MG TABLET PO PRN (08:02)
[2018-12-23] MEDS: PANTOPRAZOLE 40 MG TABLET. PO SCH (08:03)
[2018-12-23] MEDS: MULTIVITAMIN with MINERAL TABLET. PO SCH (08:03)
[2018-12-23] MEDS: CARBIDOPA/LEVODOPA 25/100MG TABLET PO SCH ×2 (08:04→14:00)
[2018-12-23] MEDS: CLOPIDOGREL BISULFATE 75 MG TABLET PO SCH (08:04)
[2018-12-23] MEDS: ASPIRIN 325 MG TABLET PO SCH (08:04)
[2018-12-23] MEDS: DULoxetine HCL 60 MG CAPSULE.DR PO SCH (08:04)
[2018-12-23] MEDS: CHOLECALCIFEROL (VITAMIN D3) 1,000 UNIT TABLET PO SCH (08:04)
[2018-12-23] MEDS: CYANOCOBALAMIN (VITAMIN B-12) 1,000 MCG TABLET. PO SCH (08:05)
[2018-12-23] MEDS: LIDOCAINE (700MG/PATCH) PATCH. TD SCH (08:07)
--- NOTE | 2018-12-23 09:54 | NUR ---
[facility] Social Work Discharge Planning Form Patient Name SHALINI MAYS Admit Date: 12/10/18 DISCHARGE PLAN Discharge Destination: Pt to discharge back to her house. Care Assessment: N/A Level II Assessment: N/A Transportation: Pt daughter, Alexandro, to pick pt up between 1730 and 1800. Special Instructions/Notes: Please fax discharge orders, medication list and discharge summary to the fax numbers listed below. DISCHARGE TO HOME: Address: [address] [place] [address]; [place] [address] Responsible Alliance Party: Shalini is her own guardian/self-sign. Pharmacy: [facility]; [address] [address] (closes at 9 PM) Contact Information: Psychiatrist/Mental Health Follow Up: Sandra Kessler Contact Information: [address]; [place] [address] ; Psychologist does not have a fax; request to mail all information to the address listed above. Appointment: 12/29/18 @ 1:00 PM Primary Care Follow Up: Dr. Denise Wen Contact Information: [address] [place] [address] Appointment: 12/28/18 @ 12:45 PM Neurologist Follow-Up: Dr. Nguyễn Almazan Contact Information: [address]; [place] [address] Appointment: 03/18/18 @ 1:30 PM; this is the soonest appointment on the schedule. Home Health: [facility] Contact Information: [address], [place] [address] Appointment: within 48 hours
[2018-12-23] MEDS ORDERED: ASPI325T8 PO (11:17)
--- NOTE | 2018-12-23 15:40 | NUR ---
Patient has been calm, cooperative, and compliant today. She has been withdrawn to her room most of the day. Will continue to monitor and report to oncoming shift.
[2018-12-23 15:56] VITALS: BP 121/73
--- NOTE | 2018-12-23 18:00 | NUR ---
Transition Record was faxed to follow-up provider with the following elements: Reason for admission, procedures, tests, principal diagnosis, pending studies, patient instructions, 09/09 contact information for unit, phone number to obtain pending test results, plan for follow-up care, physician follow-up, advanced directive information, and medication list with dose, duration and instructions. This information was included in the following documents: History and physical, lab results, study results, progress notes, social work planning form, DC instruction form, patient visit summary, and medication reconciliation form. Date & time record faxed: 12:41 23 December 2018 Record faxed to: Dr. Wen, Dr. Almazan, and [facility] Record discussed with/ report given to: Patient education provided at discharge including medications, follow up appointments, and to call [phone] with any questions.
--- NOTE | 2018-12-23 18:01 | PN ---
DATE: 12/22/2018 This late entry 12/22/2018 covers elements not covered in my initial note. I met with the patient evening of 12/22/2018. The patient slept 7-3/4 hours previous night. She is less depressed, withdrawn. No suicidal ideation, had a good day per nursing report. REVIEW OF SYSTEMS: Ambulation impaired with walker. No CV, , pulmonary, eye system symptoms on review. MENTAL STATUS EXAM: Reasonably oriented. Speech is coherent, has some latency. Abstraction fair, computation impaired, language function intact. Mood and affect is improved. LABORATORY DATA: Reviewed. IMPRESSION: Unchanged from initial note. PLAN: No change from initial note. MAN Kaylah KAY MD DR: TONY/lor JOB#: [id number] / [id number]
--- NOTE | 2018-12-23 20:37 | PDOC ---
Exam Note: Oscar Note: Please also refer to the separate dictated note~for this date of service dictated separately.~Patient seen individually. Discussed the patient with Nursing staff reviewed the chart.~Reviewed interim history and current functioning. Reviewed vital signs,~Labs/ Radiology~and current medications noted below. Continue current treatment with the changes noted in the dictated addendum note Assessment: Vital Signs/I&O: Vital Signs Date Time Temp Pulse Resp B/P (MAP) Pulse Ox O2 Delivery O2 Flow Rate FiO2 12/23/18 15:56 98.0 80 18 121/73 (89) 99 12/20/18 06:02 Room Air I & O 12/22/18 12/22/18 12/23/18 15:00 23:00 07:00 Intake Total 600 ml 240 ml 240 ml Balance 600 ml 240 ml 240 ml Current Medications: I have reviewed the current psychotropics carefully including drug interactions. Risk benefit ratio favors no change other than as noted in my dictated progress note. Diagnosis: Problems: (1) Anxiety disorder (2) Major depressive disorder, recurrent episode (3) Impulse control disorder (4) Psychotic depression (5) Psychosis, atypical (6) Mild cognitive disorder SABRINA KAY MD Dec 23, 2018 20:37
--- NOTE | 2018-12-24 02:58 | PN ---
DATE: 12/21/2018 PSYCHIATRIC PROGRESS NOTE This late entry 12/21/2018 covers elements not covered in my initial note. SUBJECTIVE: I met with the patient in the evening. Per report from nursing staff, the patient slept reasonably well as being less depressed, anxious. No suicidal ideation noted. REVIEW OF SYSTEMS: Ambulation impaired with walker. No CV, , pulmonary, eye system symptoms on review. MENTAL STATUS EXAM: Reasonably oriented. Speech is coherent, abstraction fair, computation impaired, language function intact. Mood and affect is improved. LABORATORY DATA: Reviewed. IMPRESSION: Unchanged from initial note. PLAN: No change from initial note. MAN Kaylah KAY MD DR: TONY/lor JOB#: [id number] / [id number]
--- NOTE | 2018-12-25 12:32 | DS ---
DATE OF DISCHARGE: 12/23/2018 DISCHARGE SUMMARY AND PSYCHIATRIC PROGRESS NOTE This late entry 12/23 covers elements not covered in my initial note 12/23. REASON FOR ADMISSION: Please refer to the admission history for details. Briefly, the patient is a 68-year-old female referred to us from [facility] where she had been an inpatient following an episode where she was suicidal, had a loaded gun pointed to her head with a plan to shoot herself while she was at home. She was taken to the Emergency Room combative with ER staff, agitated, having marked insomnia, intermittent hallucinations, extremely depressed. She had failed outpatient psychiatric interventions, but deemed a potential danger to herself, admitted for inpatient psychiatric stabilization. SIGNIFICANT FINDINGS AND CLINICAL COURSE: Following admission, the patient was seen daily individually by myself from a psychiatric standpoint, medical followup with Dr. Garcia. The patient was extremely depressed, withdrawn, hopeless, helpless, somewhat delusional. She was stabilized on a combination of Cymbalta 60 mg a day, trazodone 50 mg at bedtime, june repeat x 1 for insomnia and she was followed by Dr. Easley, Neurology for her Parkinson's. Sinemet and adjusted to 50/200 mg t.i.d. Gradually mood appeared to improve. There were several psychosocial stressors worsening her depression. She was living alone even with some in-home services and social service staff addressed at length more intense services to reduce her isolation. REVIEW OF SYSTEMS: Prior to discharge on 12/23, no CV, , pulmonary, eye system symptoms on review. Gait unsteady with walker. MENTAL STATUS EXAM: Oriented reasonably. Speech is coherent, has some latency. Abstraction fair. Computation impaired. Language function intact. Mood and affect improved. No suicidal or homicidal ideation. CONDITION AT DISCHARGE: Improved. FINAL DIAGNOSES: Major depressive disorder, recurrent, severe, in partial remission; anxiety disorder, unspecified; mild cognitive impairment; status post cerebrovascular accident. Rest unchanged from admission. DISCHARGE MEDICATIONS: Please refer to the MRAD. DISCHARGE INSTRUCTIONS: Outpatient psychiatric and medical followup as arranged by the Social Service staff with intense outpatient interventions, in-home interventions. We discussed assisted living placement options with the patient initially wanted a trial back home with intense services, which were initiated. Time for discharge day management greater than 30 minutes. MAN Kaylah KAY MD DR: Bean JOB#: [id number] / [id number]
== END 2018-12-23 18:03 | disposition home health service (06) | DRG 885 ==
LOC: GEROPSY 13:20
PROVIDERS: ADMIT Psychiatry & Neurology Psychiatry; ATTEND Psychiatry & Neurology Psychiatry
DX: F33.3 Major depressive disorder, recurrent, severe with psychotic symptoms (principal); G81.94 Hemiplegia, unspecified affecting left nondominant side; R45.851 Suicidal ideations; G20 Parkinson's disease; Z66 Do not resuscitate; K21.9 Gastro-esophageal reflux disease without esophagitis; E78.5 Hyperlipidemia, unspecified; M81.0 Age-related osteoporosis without current pathological fracture; G47.00 Insomnia, unspecified; E78.00 Pure hypercholesterolemia, unspecified; G89.29 Other chronic pain; F41.9 Anxiety disorder, unspecified; F09 Unspecified mental disorder due to known physiological condition; F17.200 Nicotine dependence, unspecified, uncomplicated; F63.9 Impulse disorder, unspecified; G31.84 Mild cognitive impairment of uncertain or unknown etiology; Z86.73 Personal history of transient ischemic attack (TIA), and cerebral infarction without residual deficits; Z86.718 Personal history of other venous thrombosis and embolism; Z88.8 Allergy status to other drugs, medicaments and biological substances; K44.9 Diaphragmatic hernia without obstruction or gangrene; Z85.3 Personal history of malignant neoplasm of breast; Z90.710 Acquired absence of both cervix and uterus
CPT/HCPCS: 36415; 80053; 80061; 81001; 82306; 83036; 83540; 83550; 83735; 84436; 84443; 84480; 85025; 86592; 87086